=== PATIENT | male | born 1955 | race Caucasian/White ===

== ENCOUNTER 2023-02-23 14:23 | Outpatient (CLI) | payer MEDICARE, MEDICAID ==
[2023-02-23 15:44] LABS: ALBUMIN 3.5 G/DL (3.4-5.0); ANION GAP 7 (8-16); BLOOD UREA NITROGEN 15 MG/DL (7-18); BUN/CREATININE RATIO 12.7 (10.0-20.0); CHLORIDE 104 MMOL/L (99-107); CREATININE 1.18 MG/DL (0.60-1.10); GLUCOSE 87 MG/DL (70-104); POTASSIUM 4.1 MMOL/L (3.5-5.1); SODIUM 141 MMOL/L (135-145); TOTAL CARBON DIOXIDE 29.6 MMOL/L (24-32); eGFR 62 ML/MIN
[2023-02-23] MEDS ORDERED: iohexol 350MG/ML 100ml bottle IV ONE (15:55)
== END 2023-02-23 23:59 | disposition home or self-care (01) ==
LOC: RAD 14:23
PROVIDERS: ATTEND Internal Medicine Interventional Cardiology
DX: I65.23 Occlusion and stenosis of bilateral carotid arteries (principal)
CPT/HCPCS: 36415; 70498; 80048; J3490; Q9967